=== PATIENT | female | born 1970 | race Caucasian/White ===

== ENCOUNTER 2019-11-28 11:31 | Emergency (ER) | payer SELFPAY ==
[~2019-11-28] VITALS: Ht 152.4 cm; Wt 46.8 kg
[2019-11-28 11:41] VITALS: Ht 152.4 cm; Wt 46.8 kg
[2019-11-28] MEDS ORDERED: ATIVAN1 MG PO (11:43)
[2019-11-28] MEDS ORDERED: CELEXA20 MG PO (11:43)
[2019-11-28 13:00] LABS: UDS - AMPHET NEGATIVE QUAL (NEGATIVE); UDS - BARB NEGATIVE QUAL (NEGATIVE); UDS - BENZO NEGATIVE QUAL (NEGATIVE); UDS - COCAINE NEGATIVE QUAL (NEGATIVE); UDS - OPIATE NEGATIVE QUAL (NEGATIVE); UDS - PCP NEGATIVE QUAL (NEGATIVE); UDS - THC NEGATIVE QUAL (NEGATIVE)
[2019-11-28 13:12] LABS: BILIRUBIN NEGATIVE (NEGATIVE); GLUCOSE NEGATIVE (NEGATIVE); KETONE NEGATIVE (NEGATIVE); NITRITE POSITIVE (NEGATIVE); SPECIFIC GRAVITY 1.005 (1.005-1.020); UROBILINOGEN NORMAL (NORMAL)
[2019-11-28 13:20] LABS: RED CELLS - URINE NONE SEEN /hpf (0-5); WHITE CELLS - URINE 0-5 /hpf (NEGATIVE)
[2019-11-28 13:21] LABS: BACTERIA MANY /hpf (NEGATIVE)
--- NOTE | 2019-11-28 14:42 | NUR ---
DR. RITCHIE NOTIFIED AND REVIEWED PT'S BEHAVIOR AND ASSESSMENT RESULTS. PT IS A LOW RISK PER DR. RITCHIE. DR. RITCHIE STATED TO GIVE RESOURCES TO PT. RESOURCES REVIEWED. PT VERBALIZIED UNDERSTADING.
[2019-11-28 15:02] LABS: BASOPHILS 0.2 % (0-2); EOSINOPHILS 3.7 % (0-7); HEMATOCRIT 39.9 % (36.0-48.0); HEMOGLOBIN 13.7 g/dL (12-16); IMMATURE GRANULOCYTES 0.2 % (0-5); MCH 31.6 pg (26.0-34.0); MCHC 34.3 g/dL (31.0-37.0); MCV 91.9 fL (80.0-100.0); MEAN PLATELET VOLUME 9.5 fL (7.4-10.4); MONOCYTES 6.3 % (2-11); NEUTROPHILS 54.6 % (40-80); PLATELET COUNT 271 10x3/uL (130-400); RBC 4.34 10x6/uL (4.00-5.40); RDW 13.1 % (11.5-14.5); WBC 4.3 10x3/uL (4.8-10.8)
[2019-11-28 15:17] LABS: CALC OSMOLALITY 277 mosm/kg (275-300); CARBON DIOXIDE 26.1 mmol/L (21.0-32.0); CHLORIDE - SERUM 102 mmol/L (98-107); CREATININE - SERUM 0.8 mg/dL (0.6-1.3); GLUCOSE 142 mg/dL (74-106); SODIUM 140 mmol/L (136-145); UREA NITROGEN 5 mg/dL (7-18); eGFR NON AFRICAN AMERICAN 81 mL/min (90-120)
[2019-11-28 15:22] LABS: ALBUMIN 3.6 g/dL (3.4-5.0); ALKALINE PHOSPHATASE 33 U/L (30-120); ALT (SGPT) 19 U/L (10-68); PROTEIN - SERUM 7.1 g/dL (6.4-8.2)
[2019-11-28 22:30] VITALS: BP 102/66
== END 2019-11-28 23:37 ==
LOC: D.ER 11:31
PROVIDERS: Family Medicine
DX: F32.2 Major depressive disorder, single episode, severe without psychotic features (principal); R44.0 Auditory hallucinations; R45.851 Suicidal ideations; J45.909 Unspecified asthma, uncomplicated; Z72.0 Tobacco use

== ENCOUNTER 2020-09-24 11:03 | Emergency (ER) | payer MEDICAID ==
[2020-06-29 01:09] VITALS: BMI 24.4
[~2020-09-24 11:03] MED LIST: ALBUTEROL SULF8.5 GM INH; ATIVAN1 MG PO; CELEXA20 MG PO; CYCLOBENZAPRINE10 MG PO; MACROBID100 MG PO
[2020-09-24] MEDS ORDERED: CLONIDINE HCL0.1 MG PO (14:49)
[2020-09-24] MEDS ORDERED: GABAPENTIN300 MG PO (14:49)
[2020-09-24] MEDS ORDERED: VENTOLIN HFA [SP8 GM INH (17:25)
== END 2020-09-24 12:01 | disposition left against medical advice (07) ==
LOC: D.ER 11:03
DX: R53.1 Weakness (principal)

== ENCOUNTER 2020-09-24 14:41 | Emergency (ER) | payer MEDICAID ==
[~2020-09-24] VITALS: Ht 152.4 cm; Wt 61.4 kg
[2020-09-24 14:48] VITALS: Ht 152.4 cm; Wt 61.4 kg
[2020-09-24] MEDS ORDERED: CLONIDINE HCL0.1 MG PO (14:49)
[2020-09-24] MEDS ORDERED: GABAPENTIN300 MG PO (14:49)
[2020-09-24 15:47] LABS: BILIRUBIN 1+ (NEGATIVE); KETONE LARGE mg/dL (NEGATIVE); NITRITE NEGATIVE (NEGATIVE); UROBILINOGEN 12 mg/dL (< 2)
[2020-09-24 15:49] VITALS: BP 118/77
[2020-09-24] MEDS ORDERED: VENTOLIN HFA [SP8 GM INH (17:25)
== END 2020-09-24 17:57 | disposition home or self-care (01) ==
LOC: D.ER 14:41
PROVIDERS: Emergency Medicine
DX: J45.909 Unspecified asthma, uncomplicated (principal); N85.8 Other specified noninflammatory disorders of uterus; I10 Essential (primary) hypertension; Z72.0 Tobacco use